=== PATIENT | female | born 2000 ===

== ENCOUNTER 2019-04-20 08:23 | Day surgery (SDC) | payer OTHER | END 2019-04-20 16:10 | disposition home or self-care (01) | LOC: CIR.AMB 08:23 → ADM 08:30 → CIR.AMB 16:10 | DX: N80.1 Endometriosis of ovary (principal) ==

== ENCOUNTER 2021-04-24 12:52 | Day surgery (SDC) | payer OTHER ==
[2021-04-24] MEDS ORDERED: KETO10TA2 PO (15:54)
[2021-04-24] MEDS ORDERED: PERCOCET 5-3251 EACH PO (15:55)
== END 2021-04-24 18:15 | disposition home or self-care (01) ==
LOC: CIR.AMB 12:52
PROVIDERS: ATTEND Obstetrics & Gynecology
DX: N80.1 Endometriosis of ovary (principal); Z30.430 Encounter for insertion of intrauterine contraceptive device; Z20.822 Contact with and (suspected) exposure to COVID-19